=== PATIENT | female | born 1975 | race Hispanic/Latino ===

== ENCOUNTER 2017-03-19 18:00 | Emergency (ER) | payer OTHER ==
[~2017-03-19] VITALS: Ht 157.5 cm; Wt 71.4 kg
[2017-03-19] MEDS ORDERED: BENADRYL 50MG C50 MG PO (19:07)
[2017-03-19] MEDS ORDERED: MEDDOSEPAK PO (19:07)
[2017-03-19 19:36] VITALS: BP 140/89
== END 2017-03-19 19:36 | disposition home or self-care (01) | DRG 918 ==
LOC: ED 18:00
DX: T65.891A Toxic effect of other specified substances, accidental (unintentional), initial encounter (principal); L23.5 Allergic contact dermatitis due to other chemical products; F41.9 Anxiety disorder, unspecified; Y92.89 Other specified places as the place of occurrence of the external cause